=== PATIENT | male | born 1995 | race Caucasian/White ===

== ENCOUNTER 2017-12-12 18:10 | Emergency (ER) | payer MEDICAID ==
[~2017-12-12] VITALS: Ht 180.3 cm; Wt 81.7 kg
[~2017-12-12 18:10] MED LIST: ALPR2TAB2 PO; CEPH500C5 PO; DICY20TA33 PO; PER10325T PO; VAL5T PO
[2017-12-12 18:16] VITALS: BP 134/86
== END 2017-12-12 20:20 | disposition left against medical advice (07) ==
LOC: ER 18:10
DX: S61.212A Laceration without foreign body of right middle finger without damage to nail, initial encounter (principal); W45.8XXA Other foreign body or object entering through skin, initial encounter; Y93.89 Activity, other specified; Y92.89 Other specified places as the place of occurrence of the external cause; Y99.8 Other external cause status; Z53.21 Procedure and treatment not carried out due to patient leaving prior to being seen by health care provider

== ENCOUNTER 2018-09-01 00:06 | Emergency (ER) | payer MEDICAID ==
[~2018-09-01] VITALS: Ht 180.3 cm; Wt 86.0 kg
[~2018-09-01 00:06] MED LIST changes: -CEPH500C5 PO
[2018-09-01 00:15] VITALS: BP 141/83
[2018-09-01] MEDS ORDERED: AMOX500C2 PO (00:43)
== END 2018-09-01 01:00 | disposition home or self-care (01) ==
LOC: ER 00:07
DX: K08.89 Other specified disorders of teeth and supporting structures (principal); Z86.14 Personal history of Methicillin resistant Staphylococcus aureus infection; Z98.890 Other specified postprocedural states; Z79.2 Long term (current) use of antibiotics; Z79.899 Other long term (current) drug therapy
CPT/HCPCS: 99283

== ENCOUNTER 2018-09-25 04:58 | Emergency (ER) | payer MEDICAID ==
[~2018-09-25] VITALS: Ht 180.3 cm; Wt 71.0 kg
[~2018-09-25 04:58] MED LIST changes: +AMOX500C2 PO
[2018-09-25] MEDS ORDERED: ibuprofen tablet 400 MG TABLET PO ONE (05:20)
[2018-09-25] MEDS ORDERED: amoxicillin 250mg capsule PO ONE (05:20)
[2018-09-25] MEDS ORDERED: AMOX-101 PO (05:21)
[2018-09-25 05:35] VITALS: BP 113/67
== END 2018-09-25 05:40 | disposition home or self-care (01) ==
LOC: ER 04:58
DX: K08.89 Other specified disorders of teeth and supporting structures (principal); Z86.14 Personal history of Methicillin resistant Staphylococcus aureus infection; Z98.890 Other specified postprocedural states; Z79.899 Other long term (current) drug therapy
CPT/HCPCS: 99283

== ENCOUNTER 2019-02-23 07:40 | Emergency (ER) | payer MEDICAID ==
[~2019-02-23 07:40] MED LIST changes: -AMOX500C2 PO
== END 2019-02-23 08:06 | disposition left against medical advice (07) ==
LOC: ER 07:41
DX: M25.512 Pain in left shoulder (principal); Z53.21 Procedure and treatment not carried out due to patient leaving prior to being seen by health care provider

== ENCOUNTER 2019-04-23 01:38 | Emergency (ER) | payer MEDICAID ==
[~2019-04-23] VITALS: Ht 180.3 cm; Wt 90.9 kg
--- NOTE | 2019-04-23 02:46 | NUR ---
DR RODRÍGUEZ TO INCISION AND DRAIN RIGHT ARM ABCESS.
[2019-04-23 03:10] VITALS: BP 134/62
[2019-04-23] MEDS ORDERED: LIDOcaine 1% W/epiNEPHrine 1:100,000 20ml vial ONE (08:00)
== END 2019-04-23 03:05 | disposition home or self-care (01) ==
LOC: ER 01:39
DX: L02.413 Cutaneous abscess of right upper limb (principal); Z90.89 Acquired absence of other organs; Z98.890 Other specified postprocedural states; Z79.899 Other long term (current) drug therapy; Z86.14 Personal history of Methicillin resistant Staphylococcus aureus infection
CPT/HCPCS: 10060; 99283

== ENCOUNTER 2019-04-23 22:58 | Emergency (ER) | payer MEDICAID ==
[~2019-04-23] VITALS: Ht 180.3 cm; Wt 90.9 kg
[2019-04-23 22:59] VITALS: BP 139/88
[2019-04-23] MEDS ORDERED: ondansetron/PF 4mg/2ml inj IV ONE (23:05)
[2019-04-23] MEDS ORDERED: normal saline 1000ML IV soln IV ONE (23:05)
[2019-04-23] MEDS ORDERED: CefTRIAXone 2gm/D5W 50ml 50 ML IV ONE (23:05)
[2019-04-23] MEDS ORDERED: acetaminophen 325mg tablet PO ONE (23:05)
[2019-04-23] MEDS ORDERED: morphine 4 MG/ML inj SYRINge IV ONE (23:05)
[2019-04-23] MEDS ORDERED: ketorolac tromethamine 15mg/ml inj. IV ONE (23:05)
[2019-04-23] MEDS ORDERED: vancomycin/NS 1 GM ADD-VANTAGE 250 ML IV ONE (23:05)
[2019-04-23] MEDS ORDERED: iohexol 300mg/ml 100ml inj. ONE (23:34)
[2019-04-23] MEDS ORDERED: LORazepam 2 mg/ml vial IV ONE (23:45)
[2019-04-23 23:49] LABS: BASOPHILS % (AUTO) 0.3 % (0-1); EOSINOPHILS % (AUTO) 0.3 % (0-6); HEMATOCRIT 33.2 % (42.0-52.0); HEMOGLOBIN 11.1 g/dl (14.0-17.9); LYMPHOCYTES # (AUTO) 0.8 X10'3 (1.1-4.8); LYMPHOCYTES % (AUTO) 5.1 % (21-51); MEAN CORPUSCULAR HEMOGLOBIN 29.1 PG (27.0-31.0); MEAN CORPUSCULAR HGB CONC 33.5 g/dL (33.0-36.5); MEAN CORPUSCULAR VOLUME 86.8 FL (78-98); MEAN PLATELET VOLUME 7.5 FL (7.4-10.4); MONOCYTES % (AUTO) 6.3 % (2-12); NEUTROPHILS # (AUTO) 14.5 X10'3 (1.8-7.7); PLATELET COUNT 290 X10'3 (140-440); RED BLOOD COUNT 3.83 X10'6 (4.70-6.10); RED CELL DISTRIBUTION WIDTH 15.3 % (11.5-14.5); WHITE BLOOD COUNT 16.5 X10'3 (4.5-11.0)
[2019-04-23 23:59] LABS: PARTIAL THROMBOPLASTIN TIME 33 SECONDS (22-32)
[2019-04-24 00:11] LABS: ALANINE AMINOTRANSFERASE 38 U/L (12-78); ALBUMIN 3.3 G/DL (3.4-5.0); ALBUMIN/GLOBULIN RATIO 0.9 (1.1-1.5); ALKALINE PHOSPHATASE 91 IU/L (46-116); ANION GAP 9 (8-16); ASPARTATE AMINO TRANSFERASE 25 U/L (10-37); BILIRUBIN,TOTAL 0.4 MG/DL (0.1-1.0); BLOOD UREA NITROGEN 15 MG/DL (7-18); CALCIUM 8.3 MG/DL (8.5-10.1); CHLORIDE 105 MMOL/L (99-107); CREATININE 0.75 MG/DL (0.60-1.10); GLUCOSE 124 MG/DL (70-104); MAGNESIUM 1.7 MG/DL (1.5-2.4); POTASSIUM 3.7 MMOL/L (3.5-5.1); SODIUM 140 MMOL/L (135-145); TOTAL CARBON DIOXIDE 25.7 MMOL/L (24-32); TOTAL PROTEIN 6.9 G/DL (6.4-8.2); eGFR > 90 ML/MIN
== END 2019-04-24 00:04 | disposition left against medical advice (07) ==
LOC: ER 22:58
DX: L02.413 Cutaneous abscess of right upper limb (principal); F19.10 Other psychoactive substance abuse, uncomplicated; F11.90 Opioid use, unspecified, uncomplicated; Z86.14 Personal history of Methicillin resistant Staphylococcus aureus infection; Z90.89 Acquired absence of other organs; Z98.890 Other specified postprocedural states; Z79.899 Other long term (current) drug therapy
CPT/HCPCS: 36415; 71045; 80053; 83605; 83735; 84145; 85025; 85610; 85730; 87040; 93005; 96365; 96375; 99284; J0696; J1885; J2270; J2405; J3370; J7030; Q9967

== ENCOUNTER 2019-05-14 18:12 | Emergency (ER) | payer MEDICAID ==
[~2019-05-14] VITALS: Ht 180.3 cm; Wt 87.0 kg
[2019-05-14] MEDS ORDERED: LIDOcaine 1% W/epiNEPHrine 1:200,000 10ml vial IJ ONE (18:30)
--- NOTE | 2019-05-14 18:36 | NUR ---
Pt. transferred to CT scan at this time by tech.
--- NOTE | 2019-05-14 18:37 | NUR ---
CARLOS NOTIFIED OF INCIDENT CASE #[id number]
[2019-05-14 18:50] LABS: ALANINE AMINOTRANSFERASE 41 U/L (12-78); ALBUMIN 3.7 G/DL (3.4-5.0); ALBUMIN/GLOBULIN RATIO 0.9 (1.1-1.5); ALKALINE PHOSPHATASE 95 IU/L (46-116); ANION GAP 6 (8-16); ASPARTATE AMINO TRANSFERASE 33 U/L (10-37); BILIRUBIN,TOTAL 0.2 MG/DL (0.1-1.0); BLOOD UREA NITROGEN 9 MG/DL (7-18); CALCIUM 8.8 MG/DL (8.5-10.1); CHLORIDE 102 MMOL/L (99-107); CREATININE 0.69 MG/DL (0.60-1.10); GLUCOSE 95 MG/DL (70-104); POTASSIUM 3.6 MMOL/L (3.5-5.1); SODIUM 137 MMOL/L (135-145); TOTAL CARBON DIOXIDE 28.7 MMOL/L (24-32); eGFR > 90 ML/MIN
[2019-05-14 18:51] LABS: ETHANOL < 0.010 GM/DL (0.0-0.010)
[2019-05-14 19:26] VITALS: BP 140/85
[2019-05-14] MEDS ORDERED: ACET-3067 PO (19:30)
== END 2019-05-14 20:18 | disposition home or self-care (01) ==
LOC: ER 18:13
DX: S52.591A Other fractures of lower end of right radius, initial encounter for closed fracture (principal); S01.511A Laceration without foreign body of lip, initial encounter; S09.90XA Unspecified injury of head, initial encounter; F11.90 Opioid use, unspecified, uncomplicated; F10.99 Alcohol use, unspecified with unspecified alcohol-induced disorder; Z90.89 Acquired absence of other organs; Z98.890 Other specified postprocedural states; Z86.14 Personal history of Methicillin resistant Staphylococcus aureus infection; Z79.899 Other long term (current) drug therapy; V19.9XXA Pedal cyclist (driver) (passenger) injured in unspecified traffic accident, initial encounter; Y93.89 Activity, other specified; Y92.488 Other paved roadways as the place of occurrence of the external cause; Y99.8 Other external cause status; Y90.0 Blood alcohol level of less than 20 mg/100 ml
CPT/HCPCS: 29125; 36415; 70450; 70486; 71045; 73030; 73110; 80053; 80320; 99284

== ENCOUNTER 2020-12-01 02:34 | Emergency (ER) | payer MEDICAID ==
[~2020-12-01 02:34] MED LIST changes: +DIAZ5TAB22 PO; -VAL5T PO
== END 2020-12-01 04:59 | disposition left against medical advice (07) ==
LOC: ER 02:36
DX: Z53.21 Procedure and treatment not carried out due to patient leaving prior to being seen by health care provider (principal)

== ENCOUNTER 2021-01-24 23:02 | Emergency (ER) | payer MEDICAID ==
[~2021-01-24] VITALS: Ht 180.3 cm; Wt 75.0 kg
[2021-01-24 23:03] VITALS: BP 133/89
[2021-01-24] MEDS ORDERED: CefTRIAXone 2gm/D5W 50ml BAG 50 ML IV ONE (23:40)
[2021-01-24] MEDS ORDERED: vancomycin/NS 1 GM ADD-VANTAGE 250 ML IV ONE (23:40)
[2021-01-24] MEDS ORDERED: iohexol 300mg/ml 100ml inj. ONE (23:42)
== END 2021-01-25 00:11 | disposition left against medical advice (07) ==
LOC: ER 23:03
DX: L02.416 Cutaneous abscess of left lower limb (principal); L03.116 Cellulitis of left lower limb; M79.605 Pain in left leg; F11.90 Opioid use, unspecified, uncomplicated; Z86.14 Personal history of Methicillin resistant Staphylococcus aureus infection; Z98.890 Other specified postprocedural states; Z90.89 Acquired absence of other organs; Z88.1 Allergy status to other antibiotic agents; Z88.8 Allergy status to other drugs, medicaments and biological substances; Z79.899 Other long term (current) drug therapy
CPT/HCPCS: 99281; Q9967